=== PATIENT | male | born 1990 | race Caucasian/White ===

== ENCOUNTER 2020-04-25 02:20 | Emergency (ER) | payer OTHER ==
[~2020-04-25] VITALS: Ht 175.3 cm; Wt 89.4 kg
[2020-04-25 02:30] VITALS: Ht 175.3 cm; Wt 89.4 kg
[2020-04-25 04:45] VITALS: BP 126/83
== END 2020-04-25 04:41 | disposition home or self-care (01) ==
LOC: ED 02:20
DX: S01.111A Laceration without foreign body of right eyelid and periocular area, initial encounter (principal); Y04.8XXA Assault by other bodily force, initial encounter; Y93.89 Activity, other specified; Y92.89 Other specified places as the place of occurrence of the external cause; Y99.8 Other external cause status
CPT/HCPCS: J2001

== ENCOUNTER 2020-05-02 11:40 | Emergency (ER) | payer OTHER ==
[~2020-05-02] VITALS: Ht 170.2 cm; Wt 88.0 kg
[2020-05-02 11:58] VITALS: BP 157/100; Ht 170.2 cm; Wt 88.0 kg
== END 2020-05-02 12:07 | disposition home or self-care (01) ==
LOC: ED 11:40
DX: S01.111D Laceration without foreign body of right eyelid and periocular area, subsequent encounter (principal); X58.XXXD Exposure to other specified factors, subsequent encounter